=== PATIENT | male | born 1985 | race Caucasian/White ===

== ENCOUNTER 2020-09-26 10:49 | Emergency (ER) | payer BC, SELFPAY ==
[2020-09-26 10:56] VITALS: BP 123/67; PULSE 59; RESP 16; TEMP 36.7; O2SAT 100
--- NOTE | 2020-09-26 11:04 | ED.HA ---
HPI - Headache General Chief Complaint: Headache Stated Complaint: head and neck ache Time Seen by Provider: 09/26/20 11:04 Source: patient Mode of arrival: ambulatory Limitations: no limitations History of Present Illness HPI Narrative: Patient presents with a headache to the back of his head. Patient states he has a history of headaches since his head injury several years ago. Patient states this is not the worst headache of his life and is similar to the ones that he has had in the past. Patient states he missed work yesterday due to his headache and now needs a note to return to work. Patient states the headache is resolved after he took ibuprofen earlier for his pain. Patient denies any cough no fever no body aches no Covid 19 symptoms. MD elicited complaint: headache Related Data Home Medications Medication Instructions Recorded Confirmed No Home Medications 09/26/20 09/26/20 Allergies Allergy/AdvReac Type Severity Reaction Status Date / Time amoxicillin Allergy Unknown Verified 09/26/20 11:06 Review of Systems Review of Systems: Narrative: CONSTITUTIONAL: Denies fever, chills, or sweats. EYES: Denies visual changes, redness, or discharge. ENT: Denies rhinorrhea, congestion, sore throat, or otalgia. CARDIOVASCULAR: Denies chest pain, palpitations, or edema. RESPIRATORY: Denies cough or dyspnea. GASTROINTESTINAL: Denies abdominal pain, nausea, vomiting, or diarrhea. GENITOURINARY: Denies dysuria or hematuria. SKIN: Denies rash or itching. MUSCULOSKELETAL: Denies back pain, joint pain, or myalgia. NEUROLOGIC: Denies numbness, or weakness. Reports headache in the back of his head similar to the ones he has had in the past PSYCHIATRIC: Denies anxiety or depression. PMFSH Comments At time of signature, agree with nursing past medical, surgical, social and family history. There is no relevant family history pertinent to the presenting complaint Exam Narrative: Exam Narrative: GENERAL: Well-appearing, well-nourished, and in no acute distress. HEAD: Normocephalic, atraumatic. EYES: PERRLA and EOMI. ENT: Nares clear, no rhinorrhea or epistaxis. Mucous membranes moist. NECK: Supple. CHEST: Clear to auscultation. No respiratory distress. HEART: Regular rate and rhythm. No murmur heard. Normal peripheral pulses. ABDOMEN: Soft, nontender, nondistended, normal active bowel sounds. EXTREMITIES: Normal range of motion. No edema. SKIN: Warm, dry, no rash. SPEECH IS CLEAR. NO LANGUAGE DEFICITS. CRANIAL NERVES: PUPILS EQUAL, ROUND, AND REACTIVE TO LIGHT. VISUAL CASTILLO FULL. EXTRA-OCULAR MOVEMENTS INTACT. NO NYSTAGMUS NOTED. FACIAL SENSATION INTACT TO LIGHT TOUCH. FACIAL MOVEMENT FULL AND SYMMETRIC. PALATE MIDLINE. TONGUE MIDLINE, MOVING EQUALLY IN BOTH DIRECTIONS. UVULA IS MIDLINE. SHOULDER SHRUG EQUAL ON BOTH SIDES. BILATERAL HAND GRASP 5/5. GAIT NORMAL. HEEL TO TOE AND TANDEM WALK NORMAL. FINGER TO NOSE NORMAL. NEG ROMBERG. NO PARASPINAL TENDERNESS, NO VERTEBRAL TENDERNESS OR STEP OFFS. NO SWELLING. NORMAL ROM OF NECK. NORMAL UE STRENGTH AND SENSATION. NEURO: No focal deficits. Alert and oriented x3. Billy Coma Scale Eye Opening: Spontaneous 4 [place] Coma Scale Motor: Obeys Commands 6 [place] Coma Scale Verbal: Oriented 5 Billy Coma Scale Total 15 Course Vital Signs Vital signs: Vital Signs Temperature 36.7 C 09/26/20 10:56 Pulse Rate 59 L 09/26/20 10:56 Respiratory Rate 16 09/26/20 10:56 Blood Pressure 123/67 09/26/20 10:56 Pulse Oximetry 100 09/26/20 10:56 Temperature 36.7 C 09/26/20 10:56 Pulse Rate 59 L 09/26/20 10:56 Respiratory Rate 16 09/26/20 10:56 Blood Pressure 123/67 09/26/20 10:56 Pulse Oximetry 100 09/26/20 10:56 MDM - Headache Differential Diagnosis Differential diagnosis: Likely migraine, tension headache, subarachnoid hemorrhage, headache, meningitis, sinusitis and postconcussion syndrome Critical Care Time Critical Care Time Critical Care Time: N
== END 2020-09-26 11:16 | disposition home or self-care (01) ==
PROVIDERS: Emergency Provider Nurse Practitioner Family
DX: R51.9 Headache, unspecified (principal)
CPT/HCPCS: 99211; G0463